=== PATIENT | female | born 1995 | race African-American/Black ===

== ENCOUNTER 2016-12-18 13:58 | Observation (INO) | payer MEDICAID, OTHER ==
[~2016-12-18] VITALS: Ht 157.5 cm; Wt 58.0 kg
[~2016-12-18 13:58] MED LIST: NAPR550T3 PO; birth control
[2016-12-18 14:00] VITALS: BP 116/66; PULSE 70; RESP 16; TEMP 97.9; O2SAT 97
[2016-12-18] MEDS ORDERED: SODIUM CHLORIDE 0.9% FLUSH 10 ML FLUSH IV FLUSH PRN ×2 (15:30→21:00)
[2016-12-18 15:40] VITALS: O2SAT 99
[2016-12-18 15:58] LABS: AUTOMATED NEUTROPHIL # 10.6 TH/MM3 (1.8-7.7); BASOPHIL % 0.3 % (0.0-2.0); EOSINOPHIL # 0.1 TH/MM3 (0-0.4); EOSINOPHIL % 0.9 % (0.0-4.0); HEMATOCRIT 39.8 % (35.0-46.0); HEMO FLAGS DIFF FINAL; LYMPH % 7.7 % (9.0-44.0); MEAN CORPUSCULAR HEMOGLOBIN 28.9 PG (27.0-34.0); MEAN CORPUSCULAR HGB CONC 33.6 % (32.0-36.0); MONO % 6.5 % (0.0-8.0); NEUT % 84.6 % (16.0-70.0); PLATELET COUNT 153 TH/MM3 (150-450); RED BLOOD COUNT 4.62 MIL/MM3 (4.00-5.30); RED CELL DISTRIBUTION WIDTH 13.3 % (11.6-17.2); WHITE BLOOD COUNT 12.5 TH/MM3 (4.0-11.0)
[2016-12-18 16:12] LABS: ALT (GPT) 17 U/L (10-53); ANION GAP 8 MEQ/L (5-15); AST (GOT) 9 U/L (15-37); BLOOD UREA NITROGEN 8 MG/DL (7-18); CHLORIDE 109 MEQ/L (98-107); GLOMERULAR FILTRATION RATE 147 ML/MIN (>89); POTASSIUM 3.6 MEQ/L (3.5-5.1); SODIUM (NA) 142 MEQ/L (136-145)
[2016-12-18 16:15] LABS: ALKALINE PHOSPHATASE 51 U/L (45-117); TOTAL BILIRUBIN ADULT 0.8 MG/DL (0.2-1.0)
[2016-12-18 16:22] LABS: BACTERIA, URINE OCC /hpf; BLOOD, URINE MOD (NEG); COMMENT (UR) CULT NOT INDICATED; CULTURE IF INDICATED CULT NOT INDICATED; GLUCOSE,URINE NEG (NEG); KETONE, URINE NEG (NEG); NITRITE,URINE NEG (NEG); SQUAMOUS EPITHELIAL CELL URINE 2 /hpf (0-5); URINE COLOR YELLOW (YELLW/STRAW)
--- NOTE | 2016-12-18 16:41 | PD ---
HPI Chief Complaint: Abdominal Pain Time Seen by Provider: 14:50 Travel History International Travel<30 days: No Contact w/Intl Traveler<30days: No Traveled to known affect area: No History of Present Illness HPI This is a 21-year-old female who presents to the emergency department with lower abdominal pain, constant for 2 days, worsening, worse in the right, moderate severity associated with multiple episodes of vomiting. She denies any fevers. She's never had pain like this before. She is on her menstrual cycle. She denies any diarrhea. PFSH Past Medical History Medical History: Denies Significant Hx Tetanus Vaccination: < 5 Years ?: Not : 0 Past Surgical History Surgical History: No Previous Surgery Social History Alcohol Use: No Tobacco Use: No Substance Use: No Allergies-Medications (Allergen,Severity, Reaction): Coded Allergies: No Known Allergies (Unverified , 12/18/16) Reported Meds & Prescriptions Reported Meds & Active Scripts Active No Active Prescriptions or Reported Medications Physical Exam Narrative GENERAL:Well appearing, no acute distress SKIN: Warm and dry. HEAD: Atraumatic. Normocephalic. EYES: Pupils equal and round. No injection or drainage. ENT: Moist mucous membranes NECK: Trachea midline. CARDIOVASCULAR: Regular rate and rhythm. No murmur appreciated. RESPIRATORY: Clear to auscultation. Breath sounds equal bilaterally. GASTROINTESTINAL: Abdomen soft, tender to palpation in the lower abdomen with no rebound or guarding. [employer] REPA[employer]ER: Firm uterus with right adnexal tenderness, blood in the vault MUSCULOSKELETAL: No obvious deformities. NEUROLOGICAL: Awake and alert. No obvious cranial nerve deficits. Moving all extremities. PSYCHIATRIC: Appropriate mood and affect; insight and judgment normal. Data Data Last Documented VS Vital Signs Date Time Temp Pulse Resp B/P Pulse Ox O2 Delivery O2 Flow Rate FiO2 12/18/16 15:40 99 12/18/16 14:00 97.9 70 16 116/66 Room Air Orders Complete Blood Count With Diff (12/18/16 15:30) Comprehensive Metabolic Panel (12/18/16 15:30) Lipase (12/18/16 15:30) Urinalysis - C+S If Indicated (12/18/16 15:30) Iv Access Insert/Monitor (12/18/16 15:30) Ecg Monitoring (12/18/16 15:30) Oximetry (12/18/16 15:30) Sodium Chloride 0.9% Flush (Ns Flush) (12/18/16 15:30) Ed Urine Pregnancytest Poc (12/18/16 15:30) Ct Abd/Pel W Iv Contrast(Rout) (12/18/16 ) Iohexol 350 Inj (Omnipaque 350 Inj) (12/18/16 16:50) Labs Laboratory Tests Test 12/18/16 15:30 White Blood Count 12.5 TH/MM3 Red Blood Count 4.62 MIL/MM3 Hemoglobin 13.3 GM/DL Hematocrit 39.8 % Mean Corpuscular Volume 86.0 FL Mean Corpuscular Hemoglobin 28.9 PG Mean Corpuscular Hemoglobin 33.6 % Concent Red Cell Distribution Width 13.3 % Platelet Count 153 TH/MM3 Mean Platelet Volume 10.0 FL Neutrophils (%) (Auto) 84.6 % Lymphocytes (%) (Auto) 7.7 % Monocytes (%) (Auto) 6.5 % Eosinophils (%) (Auto) 0.9 % Basophils (%) (Auto) 0.3 % Neutrophils # (Auto) 10.6 TH/MM3 Lymphocytes # (Auto) 1.0 TH/MM3 Monocytes # (Auto) 0.8 TH/MM3 Eosinophils # (Auto) 0.1 TH/MM3 Basophils # (Auto) 0.0 TH/MM3 CBC Comment DIFF FINAL Differential Comment Urine Color YELLOW Urine Turbidity HAZY Urine pH 8.0 Urine Specific [place] 1.023 Urine Protein TRACE mg/dL Urine Glucose (UA) NEG mg/dL Urine Ketones NEG mg/dL Urine Occult Blood MOD Urine Nitrite NEG Urine Bilirubin NEG Urine Urobilinogen LESS THAN 2.0 MG/DL Urine Leukocyte Esterase NEG Urine RBC /hpf Urine WBC 6 /hpf Urine Squamous Epithelial 2 /hpf Cells Urine Amorphous Sediment RARE Urine Bacteria OCC /hpf Microscopic Urinalysis Comment CULT NOT INDICATED Sodium Level 142 MEQ/L Potassium Level 3.6 MEQ/L Chloride Level 109 MEQ/L Carbon Dioxide Level 25.0 MEQ/L Anion Gap 8 MEQ/L Blood Urea Nitrogen 8 MG/DL Creatinine 0.62 MG/DL Estimat Glomerular Filtration 147 ML/MIN Rate Random Glucose 84 MG/DL Calcium Level 8.8 MG/DL Total Bilirubin 0.8 MG/DL Aspartate Amino Transf 9 U/L (AST/SGOT) Alanine Aminotransferase 17 U/L (ALT/SGPT) Alkaline Phosphatase 51 U/L Total Protein 7.3 GM/DL Albumin 3.9 GM/DL Lipase 174 U/L MDM Medical Decision Making Medical Screen Exam Complete: Yes Emergency Medical Condition: Yes Interpretation(s) Afebrile, no tachycardia, normotensive Leukocytosis with left shift Electrolytes are reassuring Lipase is normal Urinalysis: Large amount of RBCs CT abdomen and pelvis demonstrates a large uterus concerning for possible neoplasm versus fibroid uterus Differential Diagnosis Appendicitis, ovarian cyst rupture, ovarian torsion, pelvic inflammatory disease Narrative Course This is a 21-year-old female who presents to the emergency department with lower abdominal discomfort that's been going on for 2 days associated with vomiting. She is placed on a monitor and an IV was established. Labs were all reassuring. Pelvic exam was notable for a firm uterus and some tenderness in the right adnexa. CT abdomen and pelvis was obtained which demonstrates an enlarged uterus. MRI was recommended. MRI was ordered and patient will be signed out to Dr. Ayala for follow-up. Scripts No Active Prescriptions or Reported Meds Domi Garcia MD Dec 18, 2016 16:41
[2016-12-18 16:45] VITALS: BP 120/62; PULSE 69; RESP 20; O2SAT 99
[2016-12-18] MEDS ORDERED: IOHEXOL 350 MG/ML 10 ML VIAL (for RAD DIAG) IV ONE (16:50)
--- NOTE | 2016-12-18 17:07 | RADRPT ---
EXAM DATE/TIME: 12/18/2016 16:43 [facility] COMPARISON: No previous studies available for comparison. INDICATIONS : Midline hypogastric abdominal pain with cramping for 1 day. IV CONTRAST: 100 cc Omnipaque 350 (iohexol) IV ORAL CONTRAST: No oral contrast ingested. RADIATION DOSE: 7.02 CTDIvol (mGy) MEDICAL HISTORY : None SURGICAL HISTORY : None. ENCOUNTER: Initial ACUITY: 1 day PAIN SCALE: 6/10 LOCATION: middle Hypogastric abdomen/pelvis TECHNIQUE: Volumetric scanning of the abdomen and pelvis was performed. Using automated exposure control and ad justment of the mA and/or kV according to patient size, radiation dose was kept as low as reasonably achievable to obtain optimal diagnostic quality images. FINDINGS: LOWER LUNGS: The visualized lower lungs are clear. LIVER: Homogeneous density without lesion. There is no dilation of the biliary tree. No calcified gallston es. SPLEEN: Normal size without lesion. PANCREAS: Within normal limits. KIDNEYS: Normal in size and shape. There is no mass, stone or hydronephrosis. ADRENAL GLANDS: Within normal limits. VASCULAR: There is no aortic aneurysm. BOWEL/MESENTERY: The stomach, small bowel, and colon demonstrate no acute abnormality. There is no free intraperitone al air or fluid. ABDOMINAL WALL: Within normal limits. RETROPERITONEUM: There is no lymphadenopathy. BLADDER: No wall thickening or mass. REPRODUCTIVE: Uterus is very prominent measuring 10.0 x 9.3 x 10.7 cm and shows heterogeneous enhancement. Findings may be due to large fibroids although a uterine neoplastic process cannot be excluded. No regional a denopathy. Small amount of free fluid in the deep pelvis. There are a few varicosities of the left go te vein. INGUINAL: There is no lymphadenopathy or hernia. MUSCULOSKELETAL: Within normal limits for patient age. CONCLUSION: 1. Very abnormal appearance of the uterus. The organ is enlarged measuring 10.7 cm in height and show s heterogeneous enhancement. Findings could represent a fibroid uterus although a neoplastic process cannot be completely excluded. MRI of the pelvis with and without gadolinium may be useful for furthe r characterization. 2. Small amount of free fluid in the deep pelvis 3. 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 Amado Lisa MD on December 18, 2016 at 16:55 Board Certified Radiologist. This report was verified electronically.
--- NOTE | 2016-12-18 18:12 | PD ---
Physical Exam Date Seen by Provider: Dec 18, 2016 Data Data Last Documented VS Vital Signs Date Time Temp Pulse Resp B/P Pulse Ox O2 Delivery O2 Flow Rate FiO2 12/18/16 20:32 59 20 112/67 99 12/18/16 14:00 97.9 Room Air Orders Complete Blood Count With Diff (12/18/16 15:30) Comprehensive Metabolic Panel (12/18/16 15:30) Lipase (12/18/16 15:30) Urinalysis - C+S If Indicated (12/18/16 15:30) Iv Access Insert/Monitor (12/18/16 15:30) Ecg Monitoring (12/18/16 15:30) Oximetry (12/18/16 15:30) Sodium Chloride 0.9% Flush (Ns Flush) (12/18/16 15:30) Ed Urine Pregnancytest Poc (12/18/16 15:30) Ct Abd/Pel W Iv Contrast(Rout) (12/18/16 ) Iohexol 350 Inj (Omnipaque 350 Inj) (12/18/16 16:50) Mri Pelvis W&W/O Contrast (12/18/16 ) Gc And Chlamydia Pcr (12/18/16 18:29) Wet Prep Profile (12/18/16 18:29) Gadodiamide Pf Inj (Omniscan Pf Inj) (12/18/16 19:05) Labs Laboratory Tests Test 12/18/16 12/18/16 15:30 17:30 White Blood Count 12.5 TH/MM3 Red Blood Count 4.62 MIL/MM3 Hemoglobin 13.3 GM/DL Hematocrit 39.8 % Mean Corpuscular Volume 86.0 FL Mean Corpuscular Hemoglobin 28.9 PG Mean Corpuscular Hemoglobin 33.6 % Concent Red Cell Distribution Width 13.3 % Platelet Count 153 TH/MM3 Mean Platelet Volume 10.0 FL Neutrophils (%) (Auto) 84.6 % Lymphocytes (%) (Auto) 7.7 % Monocytes (%) (Auto) 6.5 % Eosinophils (%) (Auto) 0.9 % Basophils (%) (Auto) 0.3 % Neutrophils # (Auto) 10.6 TH/MM3 Lymphocytes # (Auto) 1.0 TH/MM3 Monocytes # (Auto) 0.8 TH/MM3 Eosinophils # (Auto) 0.1 TH/MM3 Basophils # (Auto) 0.0 TH/MM3 CBC Comment DIFF FINAL Differential Comment Urine Color YELLOW Urine Turbidity HAZY Urine pH 8.0 Urine Specific [place] 1.023 Urine Protein TRACE mg/dL Urine Glucose (UA) NEG mg/dL Urine Ketones NEG mg/dL Urine Occult Blood MOD Urine Nitrite NEG Urine Bilirubin NEG Urine Urobilinogen LESS THAN 2.0 MG/DL Urine Leukocyte Esterase NEG Urine RBC /hpf Urine WBC 6 /hpf Urine Squamous Epithelial 2 /hpf Cells Urine Amorphous Sediment RARE Urine Bacteria OCC /hpf Microscopic Urinalysis Comment CULT NOT INDICATED Sodium Level 142 MEQ/L Potassium Level 3.6 MEQ/L Chloride Level 109 MEQ/L Carbon Dioxide Level 25.0 MEQ/L Anion Gap 8 MEQ/L Blood Urea Nitrogen 8 MG/DL Creatinine 0.62 MG/DL Estimat Glomerular Filtration 147 ML/MIN Rate Random Glucose 84 MG/DL Calcium Level 8.8 MG/DL Total Bilirubin 0.8 MG/DL Aspartate Amino Transf 9 U/L (AST/SGOT) Alanine Aminotransferase 17 U/L (ALT/SGPT) Alkaline Phosphatase 51 U/L Total Protein 7.3 GM/DL Albumin 3.9 GM/DL Lipase 174 U/L Clue Cells (Wet Prep) PRESENT Vaginal Trichomonas (Wet Prep) NONE SEEN Vaginal Yeast (Wet Prep) NONE SEEN MDM Medical Record Reviewed: Yes Supervised Visit with POLY: No Differential Diagnosis Uterine neoplasm versus uterine fibroid, ovarian cysts Narrative Course Please see previous provider's record for full initial workup and hpi Patient was signed out to me by Dr. Garcia at change of shift. Patient currently pending abdominal MRI and then dispo of patient. Patient is a 21-year-old female who presents to emergency with complaints of lower abdominal pain. Patient initially complained of pain to her right lower abdomen, reports that she had associated episodes of nausea and vomiting with her symptoms since last night. She is currently on her menstrual cycle, there was concerns for a possible appendicitis, CT the abdomen and pelvis was ordered to rule appendicitis. Last Impressions Abdomen/Pelvis CT 12/18/16 0000 Signed Impressions: Service Date/Time: Friday, December 18, 2016 16:43 - CONCLUSION: 1. Very abnormal appearance of the uterus. The organ is enlarged measuring 10.7 cm in height and shows heterogeneous enhancement. Findings could represent a fibroid uterus although a neoplastic process cannot be completely excluded. MRI of the pelvis with and without gadolinium may be useful for further characterization. 2. Small amount of free fluid in the deep pelvis 3. 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 Amado Lisa MD CT of the abdomen and pelvis demonstrates a large uterus concern for possible neoplasm versus a fibroid uterus, radiologist recommended MRI of the pelvis with and without gadolinium to either characterize her uterus. MRI pending at this time. Last Impressions Pelvis MRI 12/18/16 Signed Impressions: Service Date/Time: Sunday, December 18, 2016 18:41 - CONCLUSION: There is a huge mass 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 The appearance is however nonspecific. Jose Maria Engel MD Abdomen/Pelvis CT 12/18/16 Signed Impressions: Service Date/Time: Sunday, December 18, 2016 16:43 - CONCLUSION: 1. Very abnormal appearance of the uterus. The organ is enlarged measuring 10.7 cm in height and shows heterogeneous enhancement. Findings could represent a fibroid uterus although a neoplastic process cannot be completely excluded. MRI of the pelvis with and without gadolinium may be useful for further characterization. 2. Small amount of free fluid in the deep pelvis 3. 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 Amado Lisa MD MRI of pelvis with huge mass 8cm, malignant generation is difficult to exclude, the appearance is nonspecific, this was reviewed with patient in detail, patient does still have continued pain to his abdomen. She will require admission at this time. case reviewed with dr butcher who accepts pt to service Diagnosis Primary Impression: Uterine mass Additional Impression: Intractable abdominal pain Admitting Information Admitting Physician Requests: Admit Scripts No Active Prescriptions or Reported Meds Era Ayala DO Dec 18, 2016 18:11
[2016-12-18] MEDS ORDERED: GADODIAMIDE PF 287 MG/ML 10 ML VIAL (for RAD MRI) IV ONE (19:05)
--- NOTE | 2016-12-18 20:05 | RADRPT ---
EXAM DATE/TIME: 12/18/2016 18:41 [facility] COMPARISON: CT ABDOMEN & PELVIS W CONTRAST, December 18, 2016, 16:43. INDICATIONS : Abnormal CT scan. Pelvic pain. CONTRAST: 10 cc Omniscan (gadodiamide) IV MEDICAL HISTORY : None. SURGICAL HISTORY : None. ENCOUNTER: Subsequent ACUITY: 1 day PAIN SCORE: 3/10 LOCATION: low abdomen. TECHNIQUE: Multiplanar, multisequence magnetic resonance imaging of the pelvis was performed. FINDINGS: There is a huge mass which measures almost 8 cm in size and involves the anterior portion of the uter us on the right side. On the sagittal projection the normal endometrial canal is identified dorsal to this mass towards the left side and displaced. This mass demonstrates mixed signal intensity within it on the T2 sequence, however majority of it demonstrates dark signal and on the postcontrast portio n demonstrates serpiginous inhomogeneous enhancement. The marrow signal appears intact. The joint sp aces are well maintained. No significant pathological joint effusion is identified. There is slight fluid in the cul-de-sac. The visualized muscular and tendinous structures appear intact. The ovaries appear intact with follicular cysts within them. CONCLUSION: There is a huge mass probably a giant subserosal degenerated fibroid, however malignant d egeneration is difficult to exclude. The appearance is however nonspecific. Jose Maria Engel MD on December 18, 2016 at 19:56 Board Certified Radiologist. This report was verified electronically.
[2016-12-18 20:32] VITALS: BP 112/67; PULSE 59; RESP 20; O2SAT 99
[2016-12-18] MEDS ORDERED: NALOXONE HCL 0.4 MG/ML AMP IV PRN (21:00)
[2016-12-18] MEDS: SODIUM CHLORIDE 0.9% FLUSH 10 ML FLUSH IV FLUSH SCH (21:00)
[2016-12-18] MEDS ORDERED: ONDANSETRON HCL 4 MG/2 ML VIAL IVP PRN (21:00)
[2016-12-18 21:18] VITALS: BP 103/67; PULSE 65; RESP 14; O2SAT 96
[2016-12-18] MEDS: MORPHINE SULFATE 4 MG/ML INJ IV PUSH PRN (21:27)
[2016-12-18] MEDS: SODIUM CHLOR 0.9% 1000 ML INJ 1,000 ML IV SCH (21:27)
[2016-12-18 22:42] LABS: CHLAMYDIA PCR NOT DETECTED (NOT DETECT); NEISSERIA PCR NOT DETECTED (NOT DETECT)
--- NOTE | 2016-12-18 23:14 | HHI.HP ---
[facility] Service [facility] Primary Care Physician No Primary Care Physician Admission Diagnosis Intractable abdominal pain, uterine mass Diagnoses: (1) Uterine mass (2) Intractable abdominal pain (3) Leukocytosis Chief Complaint: Abdominal pain Travel History International Travel<30 Days: No Contact w/Intl Traveler <30 Da: No Traveled to Known Affected Are: No History of Present Illness Ms. Ramsey is a 21 year-old female with a remote history of asthma who presented to the ER on 12/18/2016 for evaluation of severe abdominal pain that started 12/17/2016. The patient is seen in the ER. She has a friend who is at the bedside. She attends school here in [facility] but is originally from [place]. She states that she woke up with severe abdominal pain yesterday and it worsens throughout the day. She had some accompanying dizziness, nausea, and vomiting. She started her menstrual cycle today and thought that the pains were premenstrual pains and would improve. However, despite resting, the pain worsened so she decided to come to the emergency room to be evaluated. She denies any abnormality with bowel movements. She denies back pain or fever, chills, dysuria, urinary frequency. She denies a history of endometriosis. She has a history of asthma but does not use an inhaler - has not required an inhaler "for years". She denies any hypertension, diabetes, liver or kidney problems, seizures, thyroid problems, cancers, or blood clots such as DVT, CVA, or PE. She has been having regular periods since September when she went off Depo- Provera. Menses normal - last 3 - 4 days. She was started on Depo-Provera for painful menstrual cramps but stopped using it before September 2016. She had her first pelvic exam here in the ER. . Review of Systems Except as stated in HPI: all other systems reviewed are Neg Past Family Social History Past Medical History Asthma . Past Surgical History Denies . Reported Medications Reported Meds & Active Scripts Active No Active Prescriptions or Reported Medications . Allergies: Coded Allergies: No Known Allergies (Unverified , 12/18/16) Active Ordered Medications Current Medications Sodium Chloride (NS Flush) 2 ml UNSCH PRN IV FLUSH FLUSH AFTER USING IV ACCESS ; Start 12/18/16 at 15:30; Stop 12/18/16 at 21:13; Status DC Iohexol (Omnipaque 350 Inj) 100 ml STK-MED ONCE IV Last administered on 16:50; Start 12/18/16 at 16:50; Stop 12/18/16 at 16:51; Status DC Gadodiamide 10 ml 10 ml STK-MED ONCE IV Last administered on 12/18/16 19:05; Start 12/18/16 at 19:05; Stop 12/18/16 at 19:06; Status DC Sodium Chloride (NS 1000 ml Inj) 1,000 ml @ 100 mls/hr Q10H IV Last administered on 12/18/16 21:27; Start 12/18/16 at 20:46 Sodium Chloride (NS Flush) 2 ml UNSCH PRN IV FLUSH FLUSH AFTER USING IV ACCESS ; Start 12/18/16 at 21:00 Sodium Chloride (NS Flush) 2 ml BID IV FLUSH ; Start 12/18/16 at 21:00 Ondansetron HCl (Zofran Inj) 4 mg Q6H PRN IVP NAUSEA OR VOMITING; Start at 21:00 Naloxone HCl (Narcan Inj) 0.4 mg UNSCH PRN IV SEE LABEL COMMENTS; Start at 21:00 Morphine Sulfate (Morphine Inj) 2 mg Q3H PRN IV PUSH PAIN >5 Last administered on 12/18/16 21:27; Start 12/18/16 at 21:00 . Family History Grandmother from "blood clot"; denies any family history of cancer . Social History Tobacco: denies Alcohol: occasional social Illicit Drugs: denies . Physical Exam Vital Signs Vital Signs Date Time Temp Pulse Resp B/P Pulse Ox O2 Delivery O2 Flow Rate FiO2 12/18/16 21:18 65 14 103/67 96 Room Air 12/18/16 20:32 59 20 112/67 99 12/18/16 16:45 69 20 120/62 99 12/18/16 15:40 99 12/18/16 14:00 97.9 70 16 116/66 97 Room Air Physical Exam GENERAL: This is a well-nourished, well-developed patient, in no apparent distress. SKIN: No rashes, ecchymoses or lesions. Cool and dry. HEAD: Atraumatic. Normocephalic. EYES: No scleral icterus. No injection or drainage. ENT: Nose without bleeding, purulent drainage. NECK: Trachea midline. No JVD or lymphadenopathy. CARDIOVASCULAR: Regular rate and rhythm without murmurs, gallops, or rubs. RESPIRATORY: Clear to auscultation. Breath sounds equal bilaterally. No wheezes , rales, or rhonchi. GASTROINTESTINAL: Abdomen soft, mildly tender suprapubic area, nondistended. No guarding. MUSCULOSKELETAL: Extremities without clubbing, cyanosis, or edema. No calf tenderness. NEUROLOGICAL: Awake and alert. Motor and sensory grossly within normal limits. Normal speech. . . Laboratory Laboratory Tests Test 12/18/16 12/18/16 15:30 17:30 White Blood Count 12.5 Red Blood Count 4.62 Hemoglobin 13.3 Hematocrit 39.8 Mean Corpuscular Volume 86.0 Mean Corpuscular Hemoglobin 28.9 Mean Corpuscular Hemoglobin 33.6 Concent Red Cell Distribution Width 13.3 Platelet Count 153 Mean Platelet Volume 10.0 Neutrophils (%) (Auto) 84.6 Lymphocytes (%) (Auto) 7.7 Monocytes (%) (Auto) 6.5 Eosinophils (%) (Auto) 0.9 Basophils (%) (Auto) 0.3 Neutrophils # (Auto) 10.6 Lymphocytes # (Auto) 1.0 Monocytes # (Auto) 0.8 Eosinophils # (Auto) 0.1 Basophils # (Auto) 0.0 CBC Comment DIFF FINAL Differential Comment Urine Color YELLOW Urine Turbidity HAZY Urine pH 8.0 Urine Specific [place] 1.023 Urine Protein TRACE Urine Glucose (UA) NEG Urine Ketones NEG Urine Occult Blood MOD Urine Nitrite NEG Urine Bilirubin NEG Urine Urobilinogen LESS THAN 2.0 Urine Leukocyte Esterase NEG Urine RBC Urine WBC 6 Urine Squamous Epithelial 2 Cells Urine Amorphous Sediment RARE Urine Bacteria OCC Microscopic Urinalysis Comment CULT NOT INDICATED Sodium Level 142 Potassium Level 3.6 Chloride Level 109 Carbon Dioxide Level 25.0 Anion Gap 8 Blood Urea Nitrogen 8 Creatinine 0.62 Estimat Glomerular Filtration 147 Rate Random Glucose 84 Calcium Level 8.8 Total Bilirubin 0.8 Aspartate Amino Transf 9 (AST/SGOT) Alanine Aminotransferase 17 (ALT/SGPT) Alkaline Phosphatase 51 Total Protein 7.3 Albumin 3.9 Lipase 174 Clue Cells (Wet Prep) PRESENT Vaginal Trichomonas (Wet Prep) NONE SEEN Vaginal Yeast (Wet Prep) NONE SEEN Chlamydia trachomatis DNA NOT DETECTED (PCR) Neisseria gonorrhoeae DNA NOT DETECTED (PCR) Result Diagram: 12/18/16 1530 12/18/16 1530 Imaging Last Impressions Pelvis MRI 12/18/16 0000 Signed Impressions: Service Date/Time: Sunday, December 18, 2016 18:41 - CONCLUSION: There is a huge mass 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 The appearance is however nonspecific. Jose Maria Engel MD Abdomen/Pelvis CT 12/18/16 0000 Signed Impressions: Service Date/Time: Sunday, December 18, 2016 16:43 - CONCLUSION: 1. Very abnormal appearance of the uterus. The organ is enlarged measuring 10.7 cm in height and shows heterogeneous enhancement. Findings could represent a fibroid uterus although a neoplastic process cannot be completely excluded. MRI of the pelvis with and without gadolinium may be useful for further characterization. 2. Small amount of free fluid in the deep pelvis 3. 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 Amado Lisa MD . Assessment and Plan Problem List: (1) Uterine mass ICD Code: N85.9 Status: Acute (2) Intractable abdominal pain ICD Code: R10.9 Status: Acute (3) Leukocytosis ICD Code: D72.829 Status: Acute (4) Bacterial vaginosis ICD Code: N76.0 Status: Acute Assessment and Plan Uterine Mass Intractable abdominal pain - [facility] consulted; patient evaluated by Dr. Beltran - suspects possible degenerating fibroid that has outgrown "it's own blood supply" and recommends myomectomy - appreciate his assistance - Morphine 2 mg IV q3h PRN pain - IVF hydration with NS at 100 cc/hr Leukocytosis - suspect stress related vs infection - WBC 12.5 on admission with neutrophilia - recheck CBC in a.m. and follow results Bacterial Vaginosis - + clue cells on wet prep - per Up to Date, CDC does not recommend to treat if asymptomatic - will defer treatment to [facility] - will likely want to treat pre-operatively depending upon what the patient decides DVT prophylaxis - SCDs Written by Clare Teixeira, acting as scribe for Dr. Bedoya on 12/18/16 at 23:00. .This note was transcribed by scribe [Clare Teixeira,]. I, Dr. Vance Bedoya personally performed the history, physical exam, and medical decision making; and confirmed the accuracy of the information in the transcribed note. Authenticated by Dr. Vance Bedoya on 12/18/16 at 23:00. Discussed Condition With ER physician, RN, and patient . Clare Teixeira Dec 18, 2016 23:14 Vance Bedoya MD January 27, 2017 06:58
--- NOTE | 2016-12-18 23:21 | PD.CONS ---
HPI Chief Complaint Lower abdominal pain began yesterday Date Seen: Dec 18, 2016 Travel History International Travel<30 Days: No Contact w/Intl Traveler<30Days: No Known Affected Area: No History of Present Illness HPI This patient is 21-year-old black female G0 LMP began today and began having lower abdominal pain last night that has worsened and is very sharp. Her menstrual cycle is regular use of fairly heavy but not painful, she is not using control this time hormones, she has no history of any CONSUMER PRODUCT ADVISOR problem that she knows of and she also said that she used Depo-Provera for short-term back which was 14 years old control her cycles with no recent use of any type of hormone or drug Para: 0 : 0 History Past Medical History Medical History: Denies Significant Hx Past Surgical History Narrative Surgical She had some type of ankle surgery when she was child Family History Narrative Family History Grandmother of a blood clot, there no CONSUMER PRODUCT ADVISOR cancers or diseases in the family Social History Narrative Social History She states that she drinks a little bit ,smokes a little bit ,and occasionally smokes weed a little bit Alcohol Use: Yes Tobacco Use: Yes Substance Abuse: Yes Allergies-Medications (Allergen,Severity, Reaction): Coded Allergies: No Known Allergies (Unverified , 12/18/16) Home Meds Discontinued Reported Medications [ control] No Conflict Check 08/28/16 Discontinued Scripts Naproxen Sodium DS 550 Mg Aed213 Mg PO BID #14 TAB Prov:AyalaEra Bahman DO 08/28/16 Review of Systems General / Constitutional: No: Fever, Weight Gain, Chills, Other Eyes: No: Diploplia, Blurred Vision, Visual changes, Pain, Photophobia HENT: No: Headaches, Vertigo, Lightheadedness Cardiovascular: No: Irregular Rhythm, Chest Pain or Discomfort, Palpitations, Tachycardia, Syncope, Varicosities, Edema, Cyanosis Respiratory: No: Cough, Short of Breath, Other Gastrointestinal: Nausea, Vomiting, Abdominal Pain, No: Diarrhea Genitourinary: No: Decreased Urinary Output, Oliguria Musculoskeletal: No: Limited ROM, Weakness, Cramping, Edema, Pain Skin: No Rash, No Itching, No Dryness, No Lumps, No Change in Pigmentation, No Change in Nails, No Alopecia, No Lesions Neurologic: No: Weakness, Dizziness, Syncope, Focal Abnormalities, Coordination Problem, Headache, Slurred Speech, Seizures Psychiatric: No: Depression, Suicidal Ideations, Homicidal Ideation Endocrine: No: Heat Intolerance, Cold Intolerance, Polydipsia, Polyuria, Other Physical Exam Vital Signs Date Time Temp Pulse Resp B/P Pulse Ox O2 Delivery O2 Flow Rate FiO2 12/18/16 21:18 65 14 103/67 96 Room Air 12/18/16 20:32 59 20 112/67 99 12/18/16 16:45 69 20 120/62 99 12/18/16 15:40 99 12/18/16 14:00 97.9 70 16 116/66 97 Room Air Narrative GENERAL: Well-nourished, well-developed patient. In no acute distress SKIN: Warm and dry. HEAD: Normocephalic and atraumatic. EYES: No scleral icterus. No injection or drainage. ENT: No nasal drainage noted. Mucous membranes pink. Airway patent. NECK: Supple, trachea midline. No JVD. CARDIOVASCULAR: Regular rate and rhythm without murmurs, gallops, or rubs. RESPIRATORY: Breath sounds equal bilaterally. No accessory muscle use. BREASTS: Bilateral exam showed no masses , no retractions, no nipple discharge. ABDOMEN/GI: Abdomen soft, tender just below umb and there is a firm mass 2 cm below umb that is large filling the pelvis, bowel sounds present, no rebound, no guarding the mass is likely the uterus and is 17-18 weeks size uterus just below umb GENITOURINARY: External Genitalia: intact and normal in appearance BUS glands: [-] Cervix: [-]closed uterus is enlarged to 18 wk size firm tender AF no adnexal masses but this is difficult to delineate, rectal deferred EXTREMITIES: No cyanosis or edema. BACK: Nontender without obvious deformity. No CVA tenderness. NEUROLOGICAL: Awake and alert. Motor and sensory grossly within normal limits. Five out of 5 muscle strength in all muscle groups. Normal speech. Data Data Orders Complete Blood Count With Diff (12/18/16 15:30) Comprehensive Metabolic Panel (12/18/16 15:30) Lipase (12/18/16 15:30) Urinalysis - C+S If Indicated (12/18/16 15:30) Iv Access Insert/Monitor (12/18/16 15:30) Ecg Monitoring (12/18/16 15:30) Oximetry (12/18/16 15:30) Sodium Chloride 0.9% Flush (Ns Flush) (12/18/16 15:30) Ed Urine Pregnancytest Poc (12/18/16 15:30) Ct Abd/Pel W Iv Contrast(Rout) (12/18/16 ) Iohexol 350 Inj (Omnipaque 350 Inj) (12/18/16 16:50) Mri Pelvis W&W/O Contrast (12/18/16 ) Gc And Chlamydia Pcr (12/18/16 18:29) Wet Prep Profile (12/18/16 18:29) Gadodiamide Pf Inj (Omniscan Pf Inj) (12/18/16 19:05) Admit Order (Ed Use Only) (12/18/16 20:46) Place In Observation (12/18/16 ) Vital Signs (Adult) Q4H (12/18/16 20:46) Activity Oob Ad Isa (12/18/16 20:46) Diet Heart Healthy (12/19/16 Breakfast) Sodium Chlor 0.9% 1000 Ml Inj (Ns 1000 M (12/18/16 20:46) Sodium Chloride 0.9% Flush (Ns Flush) (12/18/16 21:00) Sodium Chloride 0.9% Flush (Ns Flush) (12/18/16 21:00) Ondansetron Inj (Zofran Inj) (12/18/16 21:00) Basic Metabolic Panel (Bmp) (12/19/16 06:00) Complete Blood Count With Diff (12/19/16 06:00) Case Management Consult (12/18/16 20:46) Scd Bilateral/Knee High PETEY.BID (12/18/16 20:46) Naloxone Inj (Narcan Inj) (12/18/16 21:00) Morphine Inj (Morphine Inj) (12/18/16 21:00) Consult Gynecology (12/18/16 ) (Hub Use Only)Inp Phy Cons/Ref (12/18/16 ) Labs Laboratory Tests Test 12/18/16 12/18/16 15:30 17:30 White Blood Count 12.5 Red Blood Count 4.62 Hemoglobin 13.3 Hematocrit 39.8 Mean Corpuscular Volume 86.0 Mean Corpuscular Hemoglobin 28.9 Mean Corpuscular Hemoglobin 33.6 Concent Red Cell Distribution Width 13.3 Platelet Count 153 Mean Platelet Volume 10.0 Neutrophils (%) (Auto) 84.6 Lymphocytes (%) (Auto) 7.7 Monocytes (%) (Auto) 6.5 Eosinophils (%) (Auto) 0.9 Basophils (%) (Auto) 0.3 Neutrophils # (Auto) 10.6 Lymphocytes # (Auto) 1.0 Monocytes # (Auto) 0.8 Eosinophils # (Auto) 0.1 Basophils # (Auto) 0.0 CBC Comment DIFF FINAL Differential Comment Urine Color YELLOW Urine Turbidity HAZY Urine pH 8.0 Urine Specific Hartman 1.023 Urine Protein TRACE Urine Glucose (UA) NEG Urine Ketones NEG Urine Occult Blood MOD Urine Nitrite NEG Urine Bilirubin NEG Urine Urobilinogen LESS THAN 2.0 Urine Leukocyte Esterase NEG Urine RBC Urine WBC 6 Urine Squamous Epithelial 2 Cells Urine Amorphous Sediment RARE Urine Bacteria OCC Microscopic Urinalysis Comment CULT NOT INDICATED Sodium Level 142 Potassium Level 3.6 Chloride Level 109 Carbon Dioxide Level 25.0 Anion Gap 8 Blood Urea Nitrogen 8 Creatinine 0.62 Estimat Glomerular Filtration 147 Rate Random Glucose 84 Calcium Level 8.8 Total Bilirubin 0.8 Aspartate Amino Transf 9 (AST/SGOT) Alanine Aminotransferase 17 (ALT/SGPT) Alkaline Phosphatase 51 Total Protein 7.3 Albumin 3.9 Lipase 174 Clue Cells (Wet Prep) PRESENT Vaginal Trichomonas (Wet Prep) NONE SEEN Vaginal Yeast (Wet Prep) NONE SEEN Chlamydia trachomatis DNA NOT DETECTED (PCR) Neisseria gonorrhoeae DNA NOT DETECTED (PCR) MDM Interpretation(s) This patient is 21-year-old black female G0 presents with lower abdominal pain 1 day duration. Denies any other symptoms she is her period started today and it's the usual normal cycle once a month and regular and has been long-term. CT scan MRI showed an enlarged uterus the MRI clearly shows a large subserosal leiomyoma that is non-pedunculated basically covering the entire anterior surface of the uterus this mass is 10 x 10 x 9 cm. And because pain is developed it's possible that is trying to become a degenerating fibroid has it' s outgrowing its own blood supply Plan Plan to discuss this patient's case with the CONSUMER PRODUCT ADVISOR doctor that's aviation survival technician tonight Dr. Delgado will talk to her in the morning about this is no urgency tonight but will discuss the possibility of her review getting a myomectomy either with this hospitalization or return in the near future to restore normal anatomy. The patient had questions about the possibility of affecting her fertility and I told her basically was too early to say one way or the other that it likely would be able to be operated on be successful and she should be able to conceive but we cannot say for sure what the status of her fertility will be in the future. We'll check a CA-125 and follow along closely Admitting diagnosis: Intractable abdominal pain, uterine mass Scripts No Active Prescriptions or Reported Meds Berhane Beltran II, MD Dec 18, 2016 23:21
[2016-12-19] VITALS (7 sets, daily range): BP systolic 93–110; BP diastolic 58–68; PULSE 64–76; RESP 12–20; TEMP 97.8–98.1; O2SAT 97–100
[2016-12-19] MEDS: MORPHINE SULFATE 4 MG/ML INJ IV PUSH PRN ×3 (00:58→23:28)
[2016-12-19 04:29] LABS: AUTOMATED NEUTROPHIL # 6.5 TH/MM3 (1.8-7.7); BASOPHIL % 0.4 % (0.0-2.0); EOSINOPHIL # 0.3 TH/MM3 (0-0.4); EOSINOPHIL % 3.1 % (0.0-4.0); HEMATOCRIT 37.1 % (35.0-46.0); HEMO FLAGS DIFF FINAL; LYMPH % 21.3 % (9.0-44.0); LYMPHOCYTE # 2.2 TH/MM3 (1.0-4.8); MEAN CELL VOLUME 86.2 FL (80.0-100.0); MEAN CORPUSCULAR HEMOGLOBIN 29.1 PG (27.0-34.0); MEAN CORPUSCULAR HGB CONC 33.7 % (32.0-36.0); MONO % 11.9 % (0.0-8.0); NEUT % 63.3 % (16.0-70.0); PLATELET COUNT 138 TH/MM3 (150-450); WHITE BLOOD COUNT 10.3 TH/MM3 (4.0-11.0)
[2016-12-19 04:50] LABS: BICARBONATE 25.5 MEQ/L (21.0-32.0); POTASSIUM 3.3 MEQ/L (3.5-5.1)
[2016-12-19] MEDS: SODIUM CHLOR 0.9% 1000 ML INJ 1,000 ML IV SCH ×2 (07:41→16:03)
[2016-12-19] MEDS: SODIUM CHLORIDE 0.9% FLUSH 10 ML FLUSH IV FLUSH SCH ×2 (07:41→21:00)
--- NOTE | 2016-12-19 17:12 | HHI.PR ---
Subjective Remarks f/u for abdominal pain. patient stated pain is controlled. denied any N/V. she is asking to eat. Objective Vitals Vital Signs Date Time Temp Pulse Resp B/P Pulse Ox O2 Delivery O2 Flow Rate FiO2 12/19/16 16:00 98.1 68 16 96/58 100 Room Air 12/19/16 14:21 97.8 68 16 99/66 100 Room Air 12/19/16 11:00 98.0 76 16 100/67 100 Room Air 12/19/16 09:44 17 12/19/16 07:30 17 100 Room Air 12/19/16 07:30 17 12/19/16 07:30 97.9 76 16 98/67 99 Room Air 12/19/16 05:00 64 12 93/58 97 Room Air 12/19/16 00:58 66 14 110/68 98 Room Air 12/18/16 21:18 65 14 103/67 96 Room Air 12/18/16 20:32 59 20 112/67 99 I/O 12/18/16 12/18/16 12/18/16 12/19/16 12/19/16 12/19/16 07:00 15:00 23:00 07:00 15:00 23:00 Intake Total 400 ml Balance 400 ml Intake Oral 400 ml # Voids 2 # Bowel Movements 0 Result Diagram: 12/19/16 0345 12/19/16 0345 Objective Remarks GENERAL: in NAD CARDIOVASCULAR: Regular rate and rhythm without murmurs, gallops, or rubs. RESPIRATORY: Breath sounds equal bilaterally. No accessory muscle use. GASTROINTESTINAL: + lower abdominal hard uterus noted, non-tender, nondistended. MUSCULOSKELETAL: No cyanosis, or edema. BACK: Nontender without obvious deformity. No CVA tenderness. Medications and IVs Current Medications Sodium Chloride (NS Flush) 2 ml UNSCH PRN IV FLUSH FLUSH AFTER USING IV ACCESS ; Start 12/18/16 at 15:30; Stop 12/18/16 at 21:13; Status DC Iohexol (Omnipaque 350 Inj) 100 ml STK-MED ONCE IV Last administered on t 16:50; Start 12/18/16 at 16:50; Stop 12/18/16 at 16:51; Status DC Gadodiamide 10 ml 10 ml STK-MED ONCE IV Last administered on 12/18/16 19:05; Start 12/18/16 at 19:05; Stop 12/18/16 at 19:06; Status DC Sodium Chloride (NS 1000 ml Inj) 1,000 ml @ 100 mls/hr Q10H IV Last administered on 12/19/16 16:03; Start 12/18/16 at 20:46 Sodium Chloride (NS Flush) 2 ml UNSCH PRN IV FLUSH FLUSH AFTER USING IV ACCESS ; Start 12/18/16 at 21:00 Sodium Chloride (NS Flush) 2 ml BID IV FLUSH ; Start 12/18/16 at 21:00 Ondansetron HCl (Zofran Inj) 4 mg Q6H PRN IVP NAUSEA OR VOMITING; Start at 21:00 Naloxone HCl (Narcan Inj) 0.4 mg UNSCH PRN IV SEE LABEL COMMENTS; Start at 21:00 Morphine Sulfate (Morphine Inj) 2 mg Q3H PRN IV PUSH PAIN >5 Last administered on 12/19/16 09:39; Start 12/18/16 at 21:00 A/P Problem List: (1) Uterine mass ICD Code: N85.9 Status: Acute (2) Intractable abdominal pain ICD Code: R10.9 Status: Acute (3) Leukocytosis ICD Code: D72.829 Status: Acute (4) Bacterial vaginosis ICD Code: N76.0 Status: Acute Assessment and Plan Uterine Mass -pain controlled. - [facility] consulted; patient evaluated by Dr. Beltran - suspects possible degenerating fibroid that has outgrown "it's own blood supply" and recommends myomectomy pending recommendation from Dr. Delgado. -CA 125 ordered by C[facility]TER [facility] GRO[facility]. - Morphine 2 mg IV q3h PRN pain - IVF hydration with NS at 100 cc/hr Leukocytosis - WBC 12.5 on admission with neutrophilia -resolved due to dehydration. Bacterial Vaginosis - + clue cells on wet prep - per Up to Date, CDC does not recommend to treat if asymptomatic - will defer treatment to [facility] - will likely want to treat pre-operatively depending upon what the patient decides DVT prophylaxis - SCDs Discharge Planning pending final recommendations from Taryn Montague MD Dec 19, 2016 17:12
--- NOTE | 2016-12-19 18:29 | PD.CONS ---
History of Present Illness Service gynecology Consult Requested By Dr. Berhane Beltran/ Fer Garcia Reason for Consult Follow up of abdominal pain, presumably caused by a large necrotizing uterine fibroid. The patient's pain was severe on admission, less so now. Primary Care Physician No Primary Care Physician Diagnoses: History of Present Illness 21 y/o [place] from [place] has been in the [facility] for some months. Yesterday she experienced severe pelvic pain with onset of menses. The patient was found to have a large anterior mass consistent with in her uterus with evidence of necrosis centrally. She was unaware of the mass previously, having never had a pelvic exam. Review of Systems Gastrointestinal: COMPLAINS OF: Abdominal pain Genitourinary: COMPLAINS OF: Dysmenorrhea Past Family Social History Allergies: Coded Allergies: No Known Allergies (Unverified , 12/18/16) Physical Exam Vital Signs Vital Signs Date Time Temp Pulse Resp B/P Pulse Ox O2 Delivery O2 Flow Rate FiO2 12/19/16 16:00 98.1 68 16 96/58 100 Room Air 12/19/16 14:21 97.8 68 16 99/66 100 Room Air 12/19/16 11:00 98.0 76 16 100/67 100 Room Air 12/19/16 09:44 17 12/19/16 07:30 17 100 Room Air 12/19/16 07:30 17 12/19/16 07:30 97.9 76 16 98/67 99 Room Air 12/19/16 05:00 64 12 93/58 97 Room Air 12/19/16 00:58 66 14 110/68 98 Room Air 12/18/16 21:18 65 14 103/67 96 Room Air 12/18/16 20:32 59 20 112/67 99 Physical Exam GENERAL: This is a well-nourished, well-developed patient, in no apparent distress, lying comfortably in bed. SKIN: No rashes, ecchymoses or lesions. Cool and dry. CARDIOVASCULAR: Regular rate and rhythm without murmurs, gallops, or rubs. RESPIRATORY: Clear to auscultation. Breath sounds equal bilaterally. No wheezes , rales, or rhonchi. GASTROINTESTINAL: Abdomen soft, non-tender, nondistended. No hepato- splenomegaly. No guarding. The uterus with fibroid is palpable at 2 fingerbreadths below the umbilicus and non-tender on palpation today. Moderate menses noted. MUSCULOSKELETAL: Extremities without clubbing, cyanosis, or edema. No joint tenderness, effusion, or edema noted. No calf tenderness. Negative Homans sign bilaterally. NEUROLOGICAL: Awake and alert. Cranial nerves II through XII intact. Motor and sensory grossly within normal limits. Five out of 5 muscle strength in all muscle groups. Normal speech. Laboratory Laboratory Tests Test 12/19/16 03:45 White Blood Count 10.3 Red Blood Count 4.30 Hemoglobin 12.5 Hematocrit 37.1 Mean Corpuscular Volume 86.2 Mean Corpuscular Hemoglobin 29.1 Mean Corpuscular Hemoglobin 33.7 Concent Red Cell Distribution Width 13.0 Platelet Count 138 Mean Platelet Volume 9.9 Neutrophils (%) (Auto) 63.3 Lymphocytes (%) (Auto) 21.3 Monocytes (%) (Auto) 11.9 Eosinophils (%) (Auto) 3.1 Basophils (%) (Auto) 0.4 Neutrophils # (Auto) 6.5 Lymphocytes # (Auto) 2.2 Monocytes # (Auto) 1.2 Eosinophils # (Auto) 0.3 Basophils # (Auto) 0.0 CBC Comment DIFF FINAL Differential Comment Sodium Level 143 Potassium Level 3.3 Chloride Level 110 Carbon Dioxide Level 25.5 Anion Gap 8 Blood Urea Nitrogen 5 Creatinine 0.64 Estimat Glomerular Filtration 142 Rate Random Glucose 110 Calcium Level 8.3 Result Diagram: 12/19/16 0345 12/19/16 0345 Imaging Imaging reviewed and I agree with Dr. Beltran. This is a large anterior fibroid with necrosis centrally. Course Patient has not received narcotics for 10 hours, and on exam the uterus is much less tender than previously described. Her menstrual flow is moderate, but not excessive, and is accompanied by decrease in pelvic pain and normalizing of CBC. She is eating normally and has normal voiding and bowel function. Assessment and Plan Problem List: (1) Uterine mass Status: Acute Plan: Patient has had resolution of her acute discomfort, with the uterus now minimally tender. Her discomforts currently are typical for her menses. Hopefully the fibroid identified will reduce somewhat in size as the necrosis runs its course. The patient could consider myomectomy, but does not need surgery at this point, and it may not be advisable. She was not planning in the near future. Being so young, she may have 30 years for the uterus to develop more fibroids or enlarge this one again. Myomectomy when her inflammation is acute may increase scarring and its consequences, which myomectomy almost invariably causes. I have advised her to avoid estrogen, to try and avoid processed meat, and to consider a progesterone-only long acting contraceptive to try and control the fibroid growth. The patient does not like to take pills, but is advised that ibuprofen (which comes in liquid) taken at 800 mg tid during menses, has been shown to decrease menstrual flow significantly ($40% in many patients. Patient is given my contact information in case she wishes to follow up. She is cleared for discharge from maintenance painter point of view. Discussed Condition With Patient and friends in room. Discharge Planning Patient can be discharged home. She is given my business card in case she wishes to follow up outpatient. Yamileth Delgado MD Dec 19, 2016 18:29
[2016-12-19] MEDS ORDERED: KETOROLAC TROMETHAMINE 30 MG/ML (IVP) VIAL IV PUSH ONE (18:30)
[2016-12-20] VITALS: BP 97/52; PULSE 61; RESP 16; TEMP 98.2; O2SAT 98
[2016-12-20] MEDS: SODIUM CHLOR 0.9% 1000 ML INJ 1,000 ML IV SCH (02:37)
[2016-12-20 04:00] VITALS: BP 100/64; PULSE 61; RESP 18; TEMP 97.9; O2SAT 97
[2016-12-20] MEDS: MORPHINE SULFATE 4 MG/ML INJ IV PUSH PRN (07:30)
[2016-12-20 08:00] VITALS: BP 106/57; PULSE 67; RESP 18; TEMP 98.1; O2SAT 99
[2016-12-20] MEDS ORDERED: IBUP100S7 PO (08:05)
--- NOTE | 2016-12-20 08:39 | HHI.PR ---
Subjective Remarks Follow-up uterine mass/fibroid/abdominal pain 12/20/16-patient seen and examined; reports improvement of abdominal pain. Afebrile Objective Vitals Vital Signs Date Time Temp Pulse Resp B/P Pulse Ox O2 Delivery O2 Flow Rate FiO2 12/20/16 04:00 97.9 61 18 100/64 97 12/20/16 00:38 16 12/20/16 00:00 98.2 61 16 97/52 98 12/19/16 19:00 98.1 75 20 110/60 99 12/19/16 16:00 98.1 68 16 96/58 100 Room Air 12/19/16 14:21 97.8 68 16 99/66 100 Room Air 12/19/16 11:00 98.0 76 16 100/67 100 Room Air I/O 12/19/16 12/19/16 12/19/16 12/20/16 12/20/16 12/20/16 06:59 14:59 22:59 06:59 14:59 22:59 Intake Total 400 ml 440 ml 120 ml Balance 400 ml 440 ml 120 ml Intake Oral 400 ml 440 ml 120 ml # Voids 2 1 1 # Bowel Movements 0 0 0 Result Diagram: 12/19/16 0345 12/19/16 0345 Imaging Last Impressions Pelvis MRI 12/18/16 0000 Signed Impressions: Service Date/Time: Sunday, December 18, 2016 18:41 - CONCLUSION: There is a huge mass 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 The appearance is however nonspecific. Jose Maria Engel MD Abdomen/Pelvis CT 12/18/16 0000 Signed Impressions: Service Date/Time: Sunday, December 18, 2016 16:43 - CONCLUSION: 1. Very abnormal appearance of the uterus. The organ is enlarged measuring 10.7 cm in height and shows heterogeneous enhancement. Findings could represent a fibroid uterus although a neoplastic process cannot be completely excluded. MRI of the pelvis with and without gadolinium may be useful for further characterization. 2. Small amount of free fluid in the deep pelvis 3. 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 Amado Lisa MD Objective Remarks GENERAL: NAD SKIN: Warm and dry. HEAD: Normocephalic. EYES: No scleral icterus. No injection or drainage. NECK: Supple, trachea midline. No JVD or lymphadenopathy. CARDIOVASCULAR: Regular rate and rhythm without murmurs, gallops, or rubs. RESPIRATORY: Breath sounds equal bilaterally. No accessory muscle use. GASTROINTESTINAL: Abdomen soft, non-tender, nondistended. MUSCULOSKELETAL: No cyanosis, or edema. BACK: Nontender without obvious deformity. No CVA tenderness. Procedures none A/P Problem List: (1) Uterine mass ICD Code: N85.9 Status: Acute (2) Intractable abdominal pain ICD Code: R10.9 Status: Acute (3) Leukocytosis ICD Code: D72.829 Status: Acute (4) Bacterial vaginosis ICD Code: N76.0 Status: Acute Assessment and Plan 21-year-old female with Uterine Mass: Secondary to fibroid, appreciate input from gynecology. At this point myomectomy is not advisable. She was advised to use only progesterone OCP and to avoid process meat. Continue with ibuprofen Abdominal pain: Secondary to fibroid. Treat as in above DVT prophylaxis: Tere- Javier Denton MD Dec 20, 2016 08:39
--- NOTE | 2016-12-20 08:41 | HHI.DS ---
Discharge Summary Admission Date Dec 18, 2016 at 20:47 Discharge Date: Dec 20, 2016 Admitting Diagnosis Intractable abdominal pain, uterine mass (1) Uterine mass ICD Code: N85.9 (2) Intractable abdominal pain ICD Code: R10.9 (3) Leukocytosis ICD Code: D72.829 (4) Bacterial vaginosis ICD Code: N76.0 Procedures none Brief History - From Admission Ms. Ramsey is a 21 year-old female with a remote history of asthma who presented to the ER on 12/18/2016 for evaluation of severe abdominal pain that started 12/17/2016. The patient is seen in the ER. She has a friend who is at the bedside. She attends school here in [facility] but is originally from [place]. She states that she woke up with severe abdominal pain yesterday and it worsens throughout the day. She had some accompanying dizziness, nausea, and vomiting. She started her menstrual cycle today and thought that the pains were premenstrual pains and would improve. However, despite resting, the pain worsened so she decided to come to the emergency room to be evaluated. She denies any abnormality with bowel movements. She denies back pain or fever, chills, dysuria, urinary frequency. She denies a history of endometriosis. She has a history of asthma but does not use an inhaler - has not required an inhaler "for years". She denies any hypertension, diabetes, liver or kidney problems, seizures, thyroid problems, cancers, or blood clots such as DVT, CVA, or PE. She has been having regular periods since September when she went off Depo- Provera. Menses normal - last 3 - 4 days. She was started on Depo-Provera for painful menstrual cramps but stopped using it before September 2016. She had her first pelvic exam here in the ER. . CBC/BMP: 12/19/16 0345 12/19/16 0345 Significant Findings Laboratory Tests Test 12/18/16 12/18/16 12/19/16 15:30 17:30 03:45 White Blood Count 12.5 TH/MM3 (4.0-11.0) Neutrophils (%) (Auto) 84.6 % (16.0-70.0) Lymphocytes (%) (Auto) 7.7 % (9.0-44.0) Neutrophils # (Auto) 10.6 TH/MM3 (1.8-7.7) Urine Turbidity HAZY (CLEAR) Urine Occult Blood MOD (NEG) Urine WBC 6 /hpf (0-5) Urine Bacteria OCC /hpf (NONE) Chloride Level 109 MEQ/L 110 MEQ/L (98-107) (98-107) Aspartate Amino Transf 9 U/L (15-37) (AST/SGOT) Clue Cells (Wet Prep) PRESENT (NONE) Platelet Count 138 TH/MM3 (150-450) Monocytes (%) (Auto) 11.9 % (0.0-8.0) Monocytes # (Auto) 1.2 TH/MM3 (0-0.9) Potassium Level 3.3 MEQ/L (3.5-5.1) Blood Urea Nitrogen 5 MG/DL (7-18) Random Glucose 110 MG/DL (74-106) Calcium Level 8.3 MG/DL (8.5-10.1) Imaging Last Impressions Pelvis MRI 12/18/16 0000 Signed Impressions: Service Date/Time: Sunday, December 18, 2016 18:41 - CONCLUSION: There is a huge mass 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 The appearance is however nonspecific. Jose Maria Engel MD Abdomen/Pelvis CT 12/18/16 0000 Signed Impressions: Service Date/Time: Sunday, December 18, 2016 16:43 - CONCLUSION: 1. Very abnormal appearance of the uterus. The organ is enlarged measuring 10.7 cm in height and shows heterogeneous enhancement. Findings could represent a fibroid uterus although a neoplastic process cannot be completely excluded. MRI of the pelvis with and without gadolinium may be useful for further characterization. 2. Small amount of free fluid in the deep pelvis 3. 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 Amado Lisa MD PE at Discharge GENERAL: NAD SKIN: Warm and dry. HEAD: Normocephalic. EYES: No scleral icterus. No injection or drainage. NECK: Supple, trachea midline. No JVD or lymphadenopathy. CARDIOVASCULAR: Regular rate and rhythm without murmurs, gallops, or rubs. RESPIRATORY: Breath sounds equal bilaterally. No accessory muscle use. GASTROINTESTINAL: Abdomen soft, non-tender, nondistended. MUSCULOSKELETAL: No cyanosis, or edema. BACK: Nontender without obvious deformity. No CVA tenderness. Hospital Course Patient was found to have uterine mass secondary to fibroid which gynecology was consulted however myomectomy at this point is not advisable. She was advised to use only progesterone OCP and avoid processed meat. Patient was treated with pain management. Her condition improved prior to discharge. Pt Condition on Discharge: Stable Discharge Disposition: Discharge Home Discharge Time: <= 30 minutes Discharge Instructions DIET: Follow Instructions for: As Tolerated, No Restrictions Activities you can perform: Regular-No Restrictions Follow up Referrals: OFFENDER EMPLOYMENT SPECIALIST PCP Follow-up - 1 Week New Medications: Ibuprofen Liq (Ibuprofen Liq) 100 Mg/5 Ml Susp 200 MG PO Q8H PRN Pain Management Days 10 Ref 0 ML Javier Burns MD Dec 20, 2016 08:41
[2016-12-20] MEDS: SODIUM CHLORIDE 0.9% FLUSH 10 ML FLUSH IV FLUSH SCH (09:00)
== END 2016-12-20 10:55 | disposition home or self-care (01) ==
LOC: NEPA 13:58 → NEDA 20:47 → NEDH 12-19 00:47 → N04A 12-19 18:48
PROVIDERS: ADMIT Hospitalist; ATTEND Hospitalist
DX: R19.03 Right lower quadrant abdominal swelling, mass and lump (principal); R10.2 Pelvic and perineal pain; D72.829 Elevated white blood cell count, unspecified; N76.0 Acute vaginitis; N85.2 Hypertrophy of uterus; D25.2 Subserosal leiomyoma of uterus; J45.909 Unspecified asthma, uncomplicated; F17.200 Nicotine dependence, unspecified, uncomplicated
CPT/HCPCS: 72197; 74177; 80048; 80053; 81001; 83690; 84703; 85025; 87210; 87491; 87591; 99285; A9579; G0378; J1885; J2270; J7030; Q9967

== ENCOUNTER 2017-10-17 18:07 | Emergency (ER) | payer SELFPAY ==
[~2017-10-17] VITALS: Ht 157.5 cm; Wt 55.9 kg
[~2017-10-17 18:07] MED LIST changes: +IBUP100S11 PO; -NAPR550T3 PO; -birth control
[2017-10-17 18:09] VITALS: BP 139/64; PULSE 105; RESP 16; TEMP 98.4; O2SAT 98
[2017-10-17] MEDS ORDERED: SODIUM CHLOR 0.9% 1000 ML INJ 1,000 ML IV SCH (18:38)
--- NOTE | 2017-10-17 18:42 | PD ---
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 Patient reports history of uterine fibroids with myomectomy in April of last year in her home town in [place]. 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 Abdominal pain is lower and mid, described as cramping, sharp at times, moderate to severe, intermittently worse at times, worse with movement and palpation. She denies fevers or chills. No vomiting or diarrhea. She is sexually active with one partner whom she has been with for the last 7 years and believe she is in a monogamous relationship. She denies any abnormal vaginal discharge other than bleeding. She is on Depo-Provera for control. PFSH Past Medical History Cardiovascular Problems: No Genitourinary: No Musculoskeletal: No Neurologic: No Psychiatric: No Reproductive: No Respiratory: Yes (ASTHMA) ?: Unknown LMP: 10/02/17 : 0 Social History Alcohol Use: Yes Tobacco Use: Yes Substance Use: Yes (weed) Allergies-Medications (Allergen,Severity, Reaction): Coded Allergies: No Known Allergies (Unverified , 12/18/16) Reported Meds & Prescriptions Reported Meds & Active Scripts Active Ibuprofen Liq (Ibuprofen) 100 Mg/5 Ml Susp 200 Mg PO Q8H PRN 10 Days Review of Systems Except as stated in HPI: all other systems reviewed are Neg Physical Exam Narrative GENERAL: Well-developed, well-nourished, comfortable, no apparent distress. SKIN: Focused skin assessment warm/dry. No pallor. HEAD: Atraumatic. Normocephalic. EYES: Pupils equal and round. No scleral icterus. No injection or drainage. ENT: Mucous membranes pink and moist. NECK: Trachea midline. No JVD. CARDIOVASCULAR: Regular rate and rhythm. No murmur appreciated. RESPIRATORY: No accessory muscle use. Clear to auscultation. Breath sounds equal bilaterally. GASTROINTESTINAL: Abdomen soft, nondistended. Moderate diffuse tenderness without peritoneal signs. Normal bowel sounds. No hernias. VOLUMETRIC WEIGHER: Exam performed in the presence of female nurse. Normal external genitalia. Small amount of blood in the vaginal vault. No active vaginal bleeding. Normal appearing cervix. No vaginal lacerations. No masses. No adnexal masses or tenderness. MUSCULOSKELETAL: No obvious deformities. No clubbing. No cyanosis. No edema. NEUROLOGICAL: Awake and alert. No obvious cranial nerve deficits. Motor grossly within normal limits. Normal speech. PSYCHIATRIC: Appropriate mood and affect; insight and judgment normal. Data Data Last Documented VS Vital Signs Date Time Temp Pulse Resp B/P (MAP) Pulse Ox O2 Delivery O2 Flow Rate FiO2 10/17/17 19:27 16 99 Room Air 10/17/17 18:09 98.4 105 Orders Orders Complete Blood Count With Diff (10/17/17 18:38) Comprehensive Metabolic Panel (10/17/17 18:38) Lipase (10/17/17 18:38) Prothrombin Time / Inr (Pt) (10/17/17 18:38) Act Partial Throm Time (Ptt) (10/17/17 18:38) Urinalysis - C+S If Indicated (10/17/17 18:38) Ct Abd/Pel W Iv Contrast(Rout) (10/17/17 18:38) Iv Access Insert/Monitor (10/17/17 18:38) Ecg Monitoring (10/17/17 18:38) Oximetry (10/17/17 18:38) Ondansetron Inj (Zofran Inj) (10/17/17 18:45) Sodium Chlor 0.9% 1000 Ml Inj (Ns 1000 M (10/17/17 18:38) Sodium Chloride 0.9% Flush (Ns Flush) (10/17/17 18:45) Ed Urine Pregnancytest Poc (10/17/17 18:38) Gc And Chlamydia Pcr (10/17/17 18:38) Wet Prep Profile (10/17/17 18:38) Us Pelvis Comp W Doppler (10/17/17 18:38) Morphine Inj (Morphine Inj) (10/17/17 18:45) Type And Screen (10/17/17 18:40) Diatrizoate Liq ( Gastroview Liq) (10/17/17 18:45) Oral Contrast - Adult (10/17/17 18:47) Ketorolac Inj (Toradol Inj) (10/17/17 20:45) Iohexol 350 Inj (Omnipaque 350 Inj) (10/17/17 21:14) Labs Laboratory Tests Test 10/17/17 19:10 10/17/17 19:20 10/17/17 19:30 Urine Color YELLOW Urine Turbidity CLOUDY Urine pH 5.5 Urine Specific [place] 1.032 Urine Protein 30 mg/dL Urine Glucose (UA) NEG mg/dL Urine Ketones TRACE mg/dL Urine Occult Blood NEG Urine Nitrite NEG Urine Bilirubin NEG Urine Urobilinogen 4.0 MG/DL Urine Leukocyte Esterase NEG Urine RBC 2 /hpf Urine Amorphous Sediment MANY Urine Bacteria RARE /hpf Urine Mucus MANY /lpf Microscopic Urinalysis Comment CULT NOT INDICATED White Blood Count 7.8 TH/MM3 Red Blood Count 4.59 MIL/MM3 Hemoglobin 12.7 GM/DL Hematocrit 38.2 % Mean Corpuscular Volume 83.1 FL Mean Corpuscular Hemoglobin 27.7 PG Mean Corpuscular Hemoglobin Concent 33.3 % Red Cell Distribution Width 14.7 % Platelet Count 155 TH/MM3 Mean Platelet Volume 10.4 FL Neutrophils (%) (Auto) 59.8 % Lymphocytes (%) (Auto) 28.3 % Monocytes (%) (Auto) 8.0 % Eosinophils (%) (Auto) 2.8 % Basophils (%) (Auto) 1.1 % Neutrophils # (Auto) 4.7 TH/MM3 Lymphocytes # (Auto) 2.2 TH/MM3 Monocytes # (Auto) 0.6 TH/MM3 Eosinophils # (Auto) 0.2 TH/MM3 Basophils # (Auto) 0.1 TH/MM3 CBC Comment DIFF FINAL Differential Comment Prothrombin Time 10.0 SEC Prothromb Time International Ratio 1.0 RATIO Activated Partial Thromboplast Time 29.2 SEC Blood Urea Nitrogen 12 MG/DL Creatinine 0.87 MG/DL Random Glucose 86 MG/DL Total Protein 7.6 GM/DL Albumin 3.8 GM/DL Calcium Level 9.0 MG/DL Alkaline Phosphatase 47 U/L Aspartate Amino Transf (AST/SGOT) 14 U/L Alanine Aminotransferase (ALT/SGPT) 20 U/L Total Bilirubin 0.7 MG/DL Sodium Level 140 MEQ/L Potassium Level 3.4 MEQ/L Chloride Level 108 MEQ/L Carbon Dioxide Level 24.6 MEQ/L Anion Gap 7 MEQ/L Estimat Glomerular Filtration Rate 99 ML/MIN Lipase 212 U/L Clue Cells (Wet Prep) NONE SEEN Vaginal Trichomonas (Wet Prep) NONE SEEN Vaginal Yeast (Wet Prep) NONE SEEN Chlamydia trachomatis DNA (PCR) NOT DETECTED Neisseria gonorrhoeae DNA (PCR) NOT DETECTED MDM Medical Decision Making Medical Screen Exam Complete: Yes Emergency Medical Condition: Yes Medical Record Reviewed: Yes Differential Diagnosis Menorrhagia, menstrual cramping, ovarian cyst, ovarian torsion, appendicitis, anemia, PID, , ectopic Narrative Course Vital signs reviewed. CBC is unremarkable. CMP is essentially unremarkable. Lipase is 212. UA: Cloudy urine, 30 protein, trace ketones, 4 urobilinogen, rare bacteria, many mucus. Wet prep is negative for yeast, negative for clue cells, negative for Trichomonas. Pelvic ultrasound: CONCLUSION: 1. Stable large uterine mass previously evaluated with MRI. Presumably this relates to a subserosal fibroid. 2. Trace amount of free fluid within the cul-de-sac. CT abdomen pelvis: CONCLUSION: 1. Decrease in size of uterine mass. This has been previously evaluated with MRI. This likely relates to a fibroid. 2. No acute abnormality. Patient made aware of all findings. She is resting comfortably. There is no active vaginal bleeding. No peritoneal signs on exam. She is stable for discharge home with outpatient follow-up with either a primary care physician or her stock preparer this week. She was advised on when to return to the emergency department. She verbalizes understanding and agreement with plan. Diagnosis Primary Impression: Abdominal pain Qualified Codes: R10.9 - Unspecified abdominal pain Additional Impression: Uterine fibroid Qualified Codes: D25.9 - Leiomyoma of uterus, unspecified Referrals: Supervisor Finishing Department 3 days Primary Care Physician 3 days Additional Instructions: Follow-up with a primary care physician this week. Follow-up with a stock preparer this week. Return to the emergency department for worsening symptoms or any other concerns. Scripts Hydrocodone-Acetaminophen (Hydrocodone-Acetaminophen) 5-325 mg Tab 1 TAB PO Q6H Y for PAIN, #12 TAB 0 Refills Prov: Iglesia Mcdonough MD 10/17/17 Disposition: 01 DISCHARGE HOME Condition: Stable Iglesia Mcdonough MD Oct 17, 2017 18:42
[2017-10-17] MEDS ORDERED: MORPHINE SULFATE 2 MG/ML INJ IV PUSH ONE (18:45)
[2017-10-17] MEDS ORDERED: DIATRIZOATE MEGLUM/DIATRIZOATE SOD 9 ML CUP PO ONE (18:45)
[2017-10-17] MEDS ORDERED: ONDANSETRON HCL 4 MG/2 ML VIAL IVP ONE (18:45)
[2017-10-17] MEDS ORDERED: SODIUM CHLORIDE 0.9% FLUSH 10 ML FLUSH IV FLUSH PRN (18:45)
[2017-10-17 19:27] VITALS: RESP 16; O2SAT 99
[2017-10-17 20:01] LABS: AUTOMATED NEUTROPHIL # 4.7 TH/MM3 (1.8-7.7); BASOPHIL # 0.1 TH/MM3 (0-0.2); BASOPHIL % 1.1 % (0.0-2.0); EOSINOPHIL # 0.2 TH/MM3 (0-0.4); EOSINOPHIL % 2.8 % (0.0-4.0); HEMATOCRIT 38.2 % (35.0-46.0); HEMOGLOBIN 12.7 GM/DL (11.6-15.3); LYMPH % 28.3 % (9.0-44.0); LYMPHOCYTE # 2.2 TH/MM3 (1.0-4.8); MEAN CELL VOLUME 83.1 FL (80.0-100.0); MEAN CORPUSCULAR HEMOGLOBIN 27.7 PG (27.0-34.0); MEAN CORPUSCULAR HGB CONC 33.3 % (32.0-36.0); MEAN PLATELET VOLUME 10.4 FL (7.0-11.0); MONOCYTE # 0.6 TH/MM3 (0-0.9); NEUT % 59.8 % (16.0-70.0); PLATELET COUNT 155 TH/MM3 (150-450); RED BLOOD COUNT 4.59 MIL/MM3 (4.00-5.30); RED CELL DISTRIBUTION WIDTH 14.7 % (11.6-17.2); WHITE BLOOD COUNT 7.8 TH/MM3 (4.0-11.0)
[2017-10-17 20:06] LABS: AMORPHOUS SEDIMENT, URINE MANY; BACTERIA, URINE RARE /hpf; BILIRUBIN, URINE NEG (NEG); BLOOD, URINE NEG (NEG); GLUCOSE,URINE NEG (NEG); KETONE, URINE TRACE mg/dL (NEG); MUCUS URINE MANY /lpf (OCC); NITRITE,URINE NEG (NEG); PH, URINE 5.5 (5.0-8.5); URINE COLOR YELLOW (YELLW/STRAW); URINE LEUKOCYTE ESTERASE NEG (NEG)
--- NOTE | 2017-10-17 20:10 | RADRPT ---
EXAM DATE/TIME: 10/17/2017 19:11 [facility] COMPARISON: MRI PELVIS W & W/O CONTRAST, December 18, 2016, 18:41. INDICATIONS : Pelvic pain. MEDICAL HISTORY : Asthma. Substance use. SURGICAL HISTORY : Fibroid removal. ENCOUNTER: Initial ACUITY: 1 week PAIN SCORE: 9/10 LOCATION: Bilateral pelvis MEASUREMENTS: UTERUS: 8.1 x 5.5 x 3.7 cm ENDOMETRIAL STRIPE: 6 mm RIGHT OVARY: 3.1 x 2.7 x 2.8 cm LEFT OVARY: 2.9 x 2.4 x 2.7 cm FINDINGS: UTERUS: There is a solitary subserosal hypoechoic mass involving the anterior uterine body measuring 5.9 x 5. 7 x 4.5 cm. This correlates to the finding on the prior MRI. It is stable in size. Endometrial stripe is normal in thickness. RIGHT OVARY: Ovary contains no mass or significant cystic lesion. LEFT OVARY: Ovary contains no mass or significant cystic lesion. MISCELLANEOUS: Trace amount of free fluid within the cul-de-sac. CONCLUSION: 1. Stable large uterine mass previously evaluated with MRI. Presumably this relates to a subserosal f ibroid. 2. Trace amount of free fluid within the cul-de-sac. Demetri Vera Jr., MD on October 17, 2017 at 20:03 Board Certified Radiologist. This report was verified electronically.
[2017-10-17 20:22] LABS: ALBUMIN 3.8 GM/DL (3.4-5.0); AST (GOT) 14 U/L (15-37); BICARBONATE 24.6 MEQ/L (21.0-32.0); BLOOD UREA NITROGEN 12 MG/DL (7-18); CHLORIDE 108 MEQ/L (98-107); CREATININE 0.87 MG/DL (0.50-1.00); GLOMERULAR FILTRATION RATE 99 ML/MIN (>89); GLUCOSE,RANDOM 86 MG/DL (74-106); LIPASE 212 U/L (73-393); SODIUM (NA) 140 MEQ/L (136-145)
[2017-10-17 20:23] LABS: ALT (GPT) 20 U/L (10-53)
[2017-10-17 20:26] LABS: ALKALINE PHOSPHATASE 47 U/L (45-117); TOTAL BILIRUBIN ADULT 0.7 MG/DL (0.2-1.0); TOTAL PROTEIN 7.6 GM/DL (6.4-8.2)
[2017-10-17] MEDS ORDERED: KETOROLAC TROMETHAMINE 30 MG/ML (IVP) VIAL IV PUSH ONE (20:45)
[2017-10-17] MEDS ORDERED: IOHEXOL 350 MG/ML 10 ML VIAL (for RAD DIAG) IVCONTRAST ONE (21:14)
--- NOTE | 2017-10-17 22:00 | RADRPT ---
EXAM DATE/TIME: 10/17/2017 21:10 [facility] COMPARISON: CT ABDOMEN & PELVIS W CONTRAST, December 18, 2016, 16:43. INDICATIONS : Low abdominal pain that is sharp at times X one week. IV CONTRAST: 98 cc Omnipaque 350 (iohexol) IV ORAL CONTRAST: Prescribed oral contrast ingested. RADIATION DOSE: 4.80 CTDIvol (mGy) MEDICAL HISTORY : None SURGICAL HISTORY : None. ENCOUNTER: Initial ACUITY: 1 week PAIN SCALE: 7/10 LOCATION: abdomen TECHNIQUE: Volumetric scanning of the abdomen and pelvis was performed. Using automated exposure control and ad justment of the mA and/or kV according to patient size, radiation dose was kept as low as reasonably achievable to obtain optimal diagnostic quality images. DICOM format image data is available electro nically for review and comparison. FINDINGS: LOWER LUNGS: The visualized lower lungs are clear. LIVER: Homogeneous density without lesion. There is no dilation of the biliary tree. No calcified gallston es. SPLEEN: Normal size without lesion. PANCREAS: Within normal limits. KIDNEYS: Normal in size and shape. There is no mass, stone or hydronephrosis. ADRENAL GLANDS: Within normal limits. VASCULAR: There is no aortic aneurysm. BOWEL/MESENTERY: The stomach, small bowel, and colon demonstrate no acute abnormality. There is no free intraperitone al air or fluid. ABDOMINAL WALL: Within normal limits. RETROPERITONEUM: There is no lymphadenopathy. BLADDER: No wall thickening or mass. REPRODUCTIVE: Again seen is a heterogeneous mass involving the uterus. This measures 9.0 x 7.6 x 6.9 cm. This is sm aller than the prior study where it measured 10.0 x 10.7 x 9.4 cm. A trace amount of free fluid is se en within the cul-de-sac. No adnexal lesions observed. INGUINAL: There is no lymphadenopathy or hernia. MUSCULOSKELETAL: Within normal limits for patient age. CONCLUSION: 1. Decrease in size of uterine mass. This has been previously evaluated with MRI. This likely relates to a fibroid. 2. No acute abnormality. Demetri Vera Jr., MD on October 17, 2017 at 21:53 Board Certified Radiologist. This report was verified electronically.
[2017-10-17] MEDS ORDERED: HYDR-3516 PO (22:20)
[2017-10-17 22:40] VITALS: BP 118/78
== END 2017-10-17 23:23 | disposition home or self-care (01) ==
LOC: NEPD 18:07
DX: R10.30 Lower abdominal pain, unspecified (principal); D25.9 Leiomyoma of uterus, unspecified; Z72.0 Tobacco use; Z87.09 Personal history of other diseases of the respiratory system
CPT/HCPCS: 74177; 76856; 80053; 81001; 83690; 84703; 85025; 85610; 85730; 86850; 86900; 86901; 87210; 87491; 87591; 93975; 96374; 96375; 99285; J1885; J2270; J2405; J7030; Q9963; Q9967

== ENCOUNTER 2017-10-20 21:30 | Emergency (ER) | payer MEDICAID ==
[~2017-10-20 21:30] MED LIST changes: +HYDR-3516 PO
[2017-10-20 21:32] VITALS: BP 103/66; PULSE 98; RESP 16; TEMP 98.7; O2SAT 100
--- NOTE | 2017-10-21 18:47 | PD ---
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 Patient states she was here last week and diagnosed with a fibroid tumor. She reports having a prolonged period for the last 2-3 weeks. 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 She denies any shortness of breath, dizziness, fatigue. She has no other complaints at this time. PFSH Past Medical History Cardiovascular Problems: No Gastrointestinal Disorders: No Genitourinary: No Implanted Vascular Access Dvce: Yes Musculoskeletal: No Neurologic: No Psychiatric: No Reproductive: No Respiratory: Yes (ASTHMA) ?: Not : 0 Social History Alcohol Use: Yes Tobacco Use: Yes Substance Use: Yes (weed) Allergies-Medications (Allergen,Severity, Reaction): Coded Allergies: No Known Allergies (Unverified , 12/18/16) Reported Meds & Prescriptions Reported Meds & Active Scripts Active Hydrocodone-Acetaminophen 5-325 mg Tab 1 Tab PO Q6H PRN Ibuprofen Liq (Ibuprofen) 100 Mg/5 Ml Susp 200 Mg PO Q8H PRN 10 Days Review of Systems Except as stated in HPI: all other systems reviewed are Neg Genitourinary: Positive: Vaginal Bleeding Physical Exam Narrative GENERAL: Well-developed, well-nourished, alert female. Presenting in no acute distress. SKIN: Warm and dry. HEAD: Normocephalic. EYES: No scleral icterus. No injection or drainage. NECK: Supple, trachea midline. No JVD or lymphadenopathy. CARDIOVASCULAR: Regular rate RESPIRATORY:No accessory muscle use. Data Data Last Documented VS Vital Signs Date Time Temp Pulse Resp B/P (MAP) Pulse Ox O2 Delivery O2 Flow Rate FiO2 10/20/17 21:32 98.7 98 16 103/66 (78) 100 Room Air MDM Medical Decision Making Medical Screen Exam Complete: Yes Emergency Medical Condition: Yes Medical Record Reviewed: Yes Interpretation(s) Vital Signs Date Time Temp Pulse Resp B/P (MAP) Pulse Ox O2 Delivery O2 Flow Rate FiO2 10/20/17 21:32 98.7 98 16 103/66 (78) 100 Room Air Differential Diagnosis Menorrhagia versus anemia versus dysfunctional bleeding versus fibroids versus other Narrative Course Patient is a 11-year-old female sent into the emergency department this for evaluation of prolonged menstrual bleeding. She is well-appearing. Vital signs are stable. Patient is awaiting bed placement. Patient was called to be admitted, she was no longer in the emergency department. Patient left AGAINST MEDICAL ADVICE. Diagnosis Primary Impression: Left against medical advice Disposition: 07 LEFT WITHOUT BEING SEEN Rocio Martinez Oct 21, 2017 18:47
== END 2017-10-21 00:35 | disposition left against medical advice (07) ==
LOC: NETRI 21:30
DX: N93.9 Abnormal uterine and vaginal bleeding, unspecified (principal); J45.909 Unspecified asthma, uncomplicated; Z72.0 Tobacco use
CPT/HCPCS: 99281

== ENCOUNTER 2017-12-07 14:16 | Emergency (ER) | payer MEDICAID ==
[~2017-12-07] VITALS: Ht 160 cm; Wt 60.0 kg
[2017-12-07 14:28] VITALS: BP 119/76; PULSE 96; RESP 18; TEMP 99; O2SAT 99
--- NOTE | 2017-12-07 16:43 | PD ---
HPI Chief Complaint: Chest Pain Time Seen by Provider: 16:42 Travel History International Travel<30 days: No Contact w/Intl Traveler<30days: No Traveled to known affect area: No History of Present Illness HPI 21-year-old female presents emergency department with 4-5 week history of increased shortness of breath with exertion and cough. Patient states she has been worse in the past several days. She reports of a sinus type infection approximately 3 weeks ago. She states she did not take anything for that at that time. She denies fever, chills, nausea, vomiting, or other abdominal symptoms. No urinary symptoms. She is not . She denies blood clot history or sickle cell trait. She denies lower extremity cramping or edema. She has reports a history of asthma in high school. She states also seasonal allergies for which he used to take medication in high school. She is a non-smoker. She currently does not take any medications. She has no known drug allergies. PFSH Past Medical History Cardiovascular Problems: No Gastrointestinal Disorders: No Genitourinary: No Implanted Vascular Access Dvce: Yes Musculoskeletal: No Neurologic: No Psychiatric: No Reproductive: No Respiratory: Yes (ASTHMA) : 0 Social History Alcohol Use: Yes Tobacco Use: Yes Substance Use: Yes (weed) Allergies-Medications (Allergen,Severity, Reaction): Coded Allergies: No Known Allergies (Unverified Adverse Reaction, Unknown, 12/07/17) Reported Meds & Prescriptions Reported Meds & Active Scripts Active Hydrocodone-Acetaminophen 5-325 mg Tab 1 Tab PO Q6H PRN Ibuprofen Liq (Ibuprofen) 100 Mg/5 Ml Susp 200 Mg PO Q8H PRN 10 Days Review of Systems Except as stated in HPI: all other systems reviewed are Neg General / Constitutional: No: Fever, Chills Eyes: No: Visual changes HENT: Positive: Headaches, Rhinitis, Rhinorrhea, Congestion, No: Vertigo, Lightheadedness, Sore Throat, Nosebleed, Neck Stiffness, Neck Pain, Masses, Dental Difficulties, Earache Cardiovascular: No: Chest Pain or Discomfort Respiratory: Positive: Shortness of Breath, Wheezing, No: Cough, Sneezing Gastrointestinal: No: Nausea, Vomiting, Diarrhea, Abdominal Pain Genitourinary: No: Dysuria Musculoskeletal: No: Pain Skin: No Rash Neurologic: No: Weakness Psychiatric: No: Depression Endocrine: No: Polydipsia Hematologic/Lymphatic: No: Easy Bruising Physical Exam Narrative GENERAL: Patient appears in no acute distress per SKIN: Warm and dry. Normal color. Normal turgor. HEAD: Atraumatic. Normocephalic. Patient has moderate sinus tenderness to percussion in both frontal maxillary sinuses per EYES: Pupils equal and round. No scleral icterus. No injection or drainage. ENT: No nasal bleeding or discharge. Mucous membranes pink and moist. TMs are clear bilaterally. Posterior pharynx is cobblestoned with mild erythema without significant swelling. Airways patent NECK: Trachea midline. Supple and nontender. CARDIOVASCULAR: Regular rate and rhythm. RESPIRATORY: No accessory muscle use. No significant wheezing noted to auscultation. Breath sounds equal bilaterally. GASTROINTESTINAL: Abdomen soft, non-tender, nondistended. Hepatic and splenic margins not palpable. MUSCULOSKELETAL: Extremities without clubbing, cyanosis, or edema. No obvious deformities. NEUROLOGICAL: Awake and alert. No obvious cranial nerve deficits. Motor grossly within normal limits. Five out of 5 muscle strength in the arms and legs. Normal speech. PSYCHIATRIC: Appropriate mood and affect; insight and judgment normal. Data Data Last Documented VS Vital Signs Date Time Temp Pulse Resp B/P (MAP) Pulse Ox O2 Delivery O2 Flow Rate FiO2 12/07/17 14:28 99.0 96 18 119/76 (90) 99 Orders Orders Electrocardiogram (12/07/17 14:33) Chest, Pa & Lat (12/07/17 ) Albuterol-Ipratropium Neb (Duoneb Neb) (12/07/17 17:00) [facility] Medical Decision Making Medical Screen Exam Complete: Yes Emergency Medical Condition: Yes Differential Diagnosis Allergic rhinitis. Sinusitis. Allergic asthma. Bronchitis. Narrative Course Patient appears medically stable at time of exam. EKG is unremarkable with sinus rhythm noted. Chest x-ray is unremarkable for acute process. Patient is given DuoNeb 1. Patient feels somewhat improved after treatment. Patient will be treated with amoxicillin 875 twice daily 10 days. Patient also started on Flonase nasal spray 2 sprays nostril daily. Patient also given Singulair 10 mg daily #30. Patient is given albuterol metered-dose inhaler 2 puffs every 4-6 hours as needed shortness of breath and wheezing. Patient can try [id number] Isabella/Zyrtec/Claritin as well as needed. Recommend follow-up with local primary care physician or return emergency department as needed. Diagnosis Primary Impression: Allergic asthma Qualified Codes: J45.21 - Mild intermittent asthma with (acute) exacerbation Additional Impression: Sinusitis Qualified Codes: J01.40 - Acute pansinusitis, unspecified Referrals: Primary Care Physician Patient Instructions: Allergic Rhinitis (ED), General Instructions, How to Use a Metered-Dose Inhaler (DC), Sinusitis (ED) Additional Instructions: Patient will be treated with amoxicillin 875 twice daily 10 days. Patient also started on Flonase nasal spray 2 sprays nostril daily. Patient also given Singulair 10 mg daily #30. Patient is given albuterol metered-dose inhaler 2 puffs every 4-6 hours as needed shortness of breath and wheezing. Patient can try [id number] Isabella/Zyrtec/Claritin as well as needed. Recommend follow-up with local primary care physician or return emergency department as needed. Med/Other Pt SpecificInfo: Prescription(s) given Disposition: 01 DISCHARGE HOME Condition: Stable Dhiraj Renee Dec 07, 2017 16:43
--- NOTE | 2017-12-07 16:57 | RADRPT ---
EXAM DATE/TIME: 12/07/2017 16:15 [place] COMPARISON: No previous studies available for comparison. INDICATIONS : Chest pain. MEDICAL HISTORY : None. SURGICAL HISTORY : None. ENCOUNTER: Initial ACUITY: 1 day PAIN SCORE: 10/08 LOCATION: Bilateral chest FINDINGS: PA and lateral views of the chest demonstrate the lungs to be symmetrically aerated without evidence of mass, infiltrate or effusion. The cardiomediastinal contours are unremarkable. Osseous structure s are intact. CONCLUSION: No acute disease. Imtiaz Lugo MD on December 07, 2017 at 16:55 Board Certified Radiologist. This report was verified electronically.
[2017-12-07] MEDS ORDERED: AMOX875T PO (16:59)
[2017-12-07] MEDS ORDERED: VENTAER INH (16:59)
[2017-12-07] MEDS ORDERED: MONT10TA2 PO (16:59)
[2017-12-07] MEDS ORDERED: RESP: ALBUTEROL 2.5 MG/IPRATROPIUM 0.5 MG NEB (SCH) NEB ONE (17:00)
--- NOTE | 2017-12-08 18:10 | EKG ---
Date Performed: 12/07/2017 Time Performed: 14:41:31 PTAGE: 21 years EKG: Sinus rhythm WITH SINUS ARRHYTHMIA NORMAL ECG NO PREVIOUS TRACING DOCTOR: Sera Quezada Interpretating Date/Time 12/08/2017 18:09:45
== END 2017-12-07 17:28 | disposition home or self-care (01) ==
LOC: NEPD 14:16
DX: J45.21 Mild intermittent asthma with (acute) exacerbation (principal); J01.40 Acute pansinusitis, unspecified; Z72.0 Tobacco use
CPT/HCPCS: 71046; 93005; 94664; 99284

== ENCOUNTER 2018-01-28 08:08 | Emergency (ER) | payer SELFPAY ==
[~2018-01-28] VITALS: Ht 160 cm; Wt 50.0 kg
[~2018-01-28 08:08] MED LIST changes: +AMOX875T PO; +MONT10TA2 PO; +VENTAER INH
[2018-01-28 08:10] VITALS: BP 130/77; PULSE 112; RESP 18; TEMP 98; O2SAT 98
[2018-01-28] MEDS ORDERED: DEPO150I IM (08:36)
[2018-01-28] MEDS ORDERED: VALT1TAB PO (08:41)
[2018-01-28] MEDS ORDERED: NORC5TAB PO (08:41)
--- NOTE | 2018-01-28 08:44 | PD ---
HPI . 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 She believes that they are secondary to shaving. However, she has subsequently been sexually active and wants to make sure that there is not a more ominous cause for the sores. She denies any pelvic pain. She denies any vaginal discharge or dyspareunia. She states that the sores are a little bit painful but that the pain is pretty mild. It is exacerbated by walking. PFSH Past Medical History Asthma: Yes Cardiovascular Problems: No Gastrointestinal Disorders: No Genitourinary: No Implanted Vascular Access Dvce: Yes Musculoskeletal: No Neurologic: No Psychiatric: No Reproductive: No Respiratory: Yes (ASTHMA) Tetanus Vaccination: Unknown Influenza Vaccination: No ?: Not : 0 Past Surgical History Gynecologic Surgery: Yes (fibroids) Social History Alcohol Use: Yes (occasionally) Tobacco Use: No Substance Use: Yes (weed) Allergies-Medications (Allergen,Severity, Reaction): Coded Allergies: No Known Allergies (Unverified Adverse Reaction, Unknown, 12/07/17) Reported Meds & Prescriptions Reported Meds & Active Scripts Active Ventolin Hfa 18 GM Inh (Albuterol Sulfate) 90 Mcg/Act Aer 2 Puff INH Q4-6H PRN Singulair (Montelukast Sodium) 10 Mg Tab 10 Mg PO HS Amoxicillin 875 Mg Tab 875 Mg PO BID Hydrocodone-Acetaminophen 5-325 mg Tab 1 Tab PO Q6H PRN Ibuprofen Liq (Ibuprofen) 100 Mg/5 Ml Susp 200 Mg PO Q8H PRN 10 Days Review of Systems Except as stated in HPI: all other systems reviewed are Neg Physical Exam Narrative GENERAL: Awake and alert and in no acute distress. SKIN: Warm and dry. HEAD: Normocephalic/atraumatic. EYES: Pupils are equal. Extraocular movements are intact. NECK: Normal range of motion. CARDIOVASCULAR: Regular rate and rhythm. RESPIRATORY: Nonlabored respirations. : Vesicular lesions on the external genitalia. They are widely scattered. On speculum exam, she is noted to have similar lesions on the cervix. The os is closed. There is minimal vaginal discharge. No cervical motion tenderness. No adnexal tenderness. MUSCULOSKELETAL: Atraumatic. NEUROLOGICAL: Nonfocal. PSYCHIATRIC: Appropriate mood and affect. Data Data Last Documented VS Vital Signs Date Time Temp Pulse Resp B/P (MAP) Pulse Ox O2 Delivery O2 Flow Rate FiO2 01/28/18 08:10 98.0 112 18 130/77 (94) 98 Orders Orders Gc And Chlamydia Pcr (01/28/18 08:15) Wet Prep Profile (01/28/18 08:15) Urinalysis - C+S If Indicated (01/28/18 08:15) Ed Urine Pregnancytest Poc (01/28/18 08:15) Azithromycin Powd Pack (Zithromax Powd P (01/28/18 08:45) Oxycodone-Acetamin 5-325 Mg (Percocet (01/28/18 08:45) Rocephin 250mg Vial Im X 1 (01/28/18 08:45) Lidocaine 1% Inj (50 Ml) (Xylocaine 1% I (01/28/18 08:45) Metronidazole (Flagyl) (01/28/18 08:45) Herpes Simplex Virus Culture (01/28/18 08:34) MDM Medical Decision Making Medical Screen Exam Complete: Yes Emergency Medical Condition: Yes Differential Diagnosis Differential diagnosis includes but is not limited to folliculitis, herpes Narrative Course This patient presents with a chief complaint of sores on her external genitalia. My exam, she has herpes. I will treat her here presumptively for gonorrhea, chlamydia and trichomonas with Rocephin, Zithromax and Flagyl. She will be discharged home with a prescription for Valtrex. I will give her a prescription for [place] for the pain. She has been instructed to follow-up with her PIPER HELPER as soon as possible. She does have a PIPER HELPER. I did query E force and she has not had any narcotics filled in the last year. Diagnosis Primary Impression: Herpes simplex Patient Instructions: General Instructions, Genital Herpes Simplex (DC), Narcotic given in the ED Med/Other Pt SpecificInfo: Prescription(s) given Scripts Hydrocodone-Acetaminophen ([place]) 5 Mg-325 Mg Tab 1 TAB PO Q4H Y for PAIN, #12 TAB 0 Refills Prov: Velma Mi MD 01/28/18 Valacyclovir (Valtrex) 1,000 Mg Tab 1000 MG PO BID for Mgmt Viral Infection for 10 Days, #2 TAB 0 Refills Prov: Velma Mi MD 01/28/18 Disposition: 01 DISCHARGE HOME Condition: Stable Velma Mi MD January 28, 2018 08:44
[2018-01-28] MEDS ORDERED: oxyCODONE/ACETAMINOPHEN 5 MG/325 MG TAB PO ONE (08:45)
[2018-01-28] MEDS ORDERED: metroNIDAZOLE 500 MG TAB PO ONE (08:45)
[2018-01-28] MEDS ORDERED: cefTRIAXone 250 MG VIAL IM ONE (08:45)
[2018-01-28] MEDS ORDERED: AZITHROMYCIN PWD FOR SUSP 1 GM PACKET PO ONE (08:45)
[2018-01-28] MEDS ORDERED: LIDOCAINE HCL 1% 50 ML VIAL IM ONE (08:45)
[2018-01-28 09:01] LABS: BACTERIA, URINE OCC /hpf; BILIRUBIN, URINE NEG (NEG); BLOOD, URINE NEG (NEG); GLUCOSE,URINE NEG (NEG); KETONE, URINE 10 mg/dL (NEG); NITRITE,URINE NEG (NEG); SQUAMOUS EPITHELIAL CELL URINE 9 /hpf (0-5); URINE COLOR YELLOW (YELLW/STRAW); URINE LEUKOCYTE ESTERASE LARGE (NEG)
== END 2018-01-28 09:49 | disposition home or self-care (01) ==
LOC: NEPE 08:08
DX: A60.00 Herpesviral infection of urogenital system, unspecified (principal)
CPT/HCPCS: 81001; 84703; 87086; 87210; 87255; 87491; 87591; 96372; 99283; J0696